=== PATIENT | female | born 1975 | race Caucasian/White ===

== ENCOUNTER 2022-09-04 22:50 | Emergency (ER) | payer MEDICAID, OTHER ==
[~2022-09-04] VITALS: Ht 173 cm; Wt 63.0 kg
[2022-09-04 22:57] VITALS: BP 133/90
[2022-09-04] MEDS ORDERED: ONDANSETRON 4 MG (ZOFRAN) ORAL DISSOLVE TAB PO STA (23:08)
[2022-09-04] MEDS ORDERED: LIDOCAINE 4% (SALONPAS) PATCH ONE (23:12)
[2022-09-04] MEDS ORDERED: NAPROXEN 250 MG (NAPROSYN) TABLET PO ONE (23:15)
--- NOTE | 2022-09-04 23:19 | ED Integumentary General ---
General Chief Complaint: Skin/Wound Problems Stated Complaint: RT SIDE BACK PAIN/NUMBNESS - RADIATES TO THE FRONT Nursing Triage Note: c/o painful rash to right lower back radiating to side. reports started with numbness approx. 3-4 days ago. [place] [facility] [place] medication for shingles. Source: patient Exam Limitations: no limitations History of Present Illness Date Seen by Provider: Sep 04, 2022 Time Seen by Provider: 23:00 Initial Comments Patient is a 46yo female to the ER with a complaint of right flank pain. SHe states about 3-4 days ago she had some numbness in her back, just below the right ribs. It started "burning" and then getting worse wrapping around her s jay. She has never had anything like this before. She went to [facility] and they told her she might have shingles. She was also told she had blood in her Urine (she is currently on her menstrual cycle). She endorses low grade fever. Mild headache and she feels nauseated. Was given tylenol with codeine for pain,. She is not a diabetic - takes no daily medications. Timing/Duration: other (3-4 days) Severity: severe Location: torso Possible Cause: exposure to illness Associated Symptoms: change in skin texture, fever (subjective), other (headache) Allergies and Home Medications Allergies Coded Allergies: Penicillins (Verified Allergy, Unknown, 09/04/22) amoxicillin (Verified Allergy, Unknown, 09/04/22) Patient Home Medication List Home Medication List Reviewed: Yes Ondansetron (Ondansetron Odt) 4 Mg Tab.rapdis, 4 MG SL Q8H PRN for NAUSEA/VOMITING Prescribed by: ARMEN LING on 09/04/22 [id number] Review of Systems Review of Systems Constitutional: see HPI, fever, malaise EENTM: no symptoms reported Respiratory: no symptoms reported Cardiovascular: no symptoms reported Gastrointestinal: nausea Genitourinary: no symptoms reported : No Musculoskeletal: back pain Skin: rash All Other Systems Reviewed Negative Unless Noted: Yes Past Arpuuks-Slfnsh-Dguhnx Hx Patient Social History Tobacco Use?: No Substance use?: No Alcohol Use?: No Pt feels they are or have been: No Immunizations Up To Date First/Initial COVID19 Vaccinat: na Past Medical History Surgery/Hospitalization HX: breast augmentation, i/d Physical Exam Vital Signs Vital Signs - First Documented 09/04/22 22:57 Temp 36.3 Pulse 111 Resp 16 B/P (MAP) 133/90 (104) Pulse Ox 99 O2 Delivery Room Air Capillary Refill : Less Than 3 Seconds General Appearance: WD/WN, mild distress HEENT: PERRL/EOMI Neck: normal inspection Cardiovascular: regular rate, rhythm Respiratory: no respiratory distress, no accessory muscle use Back: other (raised plaque like palpable exanthem to right flank, wrapping from spine to RLQ abdomen. No viesicles or pustules. Not open or draining) Extremities: normal inspection Neurologic/Psychiatric: alert Skin Problem Location: torso Skin Problem Character: macules, patchy, rash Progress/Results/Core Measures Results/Orders My Orders Orders - ARMEN LING MD Lidocaine 4% Patch (Salonpas 4% Patch) (09/05/22 09:00) Ondansetron Oral Dissolve Tab (Zofran (09/04/22 23:08) Naproxen Tablet (Naprosyn Tablet) (09/04/22 23:15) Lidocaine 4% Patch (Salonpas 4% Patch) (09/04/22 23:12) Medications Given in ED Current Medications Medications Dose Ordered Sig/Lauren Route Start Time Stop Time Status Last Admin Dose Admin Naproxen 500 mg ONCE ONCE PO 09/04/22 23:15 09/04/22 23:16 DC 09/04/22 23:13 500 MG Vital Signs/I&O 09/04/22 09/04/22 22:57 23:13 Temp 36.3 36.3 Pulse 111 Resp 16 B/P (MAP) 133/90 (104) Pulse Ox 99 O2 Delivery Room Air Blood Pressure Mean: 104 Departure Impression Primary Impression: Shingles rash Qualified Codes: B02.9 - Zoster without complications Disposition: 01 HOME, SELF-CARE Condition: Stable Departure-Patient Inst. Decision time for Depature: 23:16 Referrals: NO,LOCAL PHYSICIAN (PCP/Family) Primary Care Physician Patient Instructions: Shingles (DC) Add. Discharge Instructions: Make sure you are taking the Valacyclovir, 1gm 3 times a day for 7-10 days. You can take over the counter Ibuprofen 3 pills every 6 hours with food; OR Aleve 2 pills twice a day with food for pain/headache. Zofran 4mg dissolving tablets - take 1-2 every 8 hours as needed for upset stomach. Drink plenty of fluids to stay well hydrated. As long as the skin is not open or draining, you can apply the lidocaine patch to the sore areas. These can be purchased at the pharmacy as well - you don't need a prescription. It may take 10 days for the rash to heal. Return to the ER for re-evaluation if you have any new, emergent or concerning symptoms. Scripts Ondansetron (Ondansetron Odt) 4 Mg Tab.rapdis 4 MG SL Q8H PRN for NAUSEA/VOMITING, #20 TAB Prov: ARMEN LING MD 09/04/22 ARMEN LING MD Sep 04, 2022 23:19
[2022-09-04] MEDS ORDERED: ONDA4TAB11 SL (23:22)
[2022-09-05] MEDS ORDERED: LIDOCAINE 4% (SALONPAS) PATCH TOP SCH (09:00)
== END 2022-09-04 23:25 | disposition home or self-care (01) ==
LOC: EDUNIT# 22:50 → ER 22:54
DX: B02.9 Zoster without complications (principal); Z28.310 Unvaccinated for COVID-19
CPT/HCPCS: 99283

== ENCOUNTER 2023-01-25 13:17 | Emergency (ER) | payer MEDICAID ==
[~2023-01-25] VITALS: Ht 172.7 cm; Wt 62.0 kg
[~2023-01-25 13:17] MED LIST: ONDA4TAB11 SL
[2023-01-25 13:20] VITALS: BP 138/103
== END 2023-01-25 13:28 | disposition left against medical advice (07) ==
LOC: EDUNIT# 13:17 → ER 13:20
DX: M54.2 Cervicalgia (principal); Z28.310 Unvaccinated for COVID-19
CPT/HCPCS: 99281